=== PATIENT | male | born 1970 | race Caucasian/White ===

== ENCOUNTER 2017-01-20 11:07 | Emergency (ER) | payer OTHER ==
[~2017-01-20] VITALS: Ht 177.8 cm; Wt 81.0 kg
[2017-01-20 11:12] VITALS: Ht 177.8 cm; Wt 81.0 kg
[2017-01-20] MEDS ORDERED: ONDANSETRON (ODT) 4 MG TAB ODT STA (11:49)
[2017-01-20] MEDS ORDERED: morphine 10 MG INJ IM ONE (12:00)
--- NOTE | 2017-01-20 12:27 | ERD ---
ER Documentation Chief Complaint Date/Time DATE: 01/20/17 TIME: 12:25 Chief Complaint Back pain HPI 46-year-old male comes in with his , states he has a history of "disc problems" in the lower back and comes in with severe pain in the low back ever since 5 days ago while he was at work. He was gardening and he was leaning forward, complains of low back pain on the left side that radiates down his left upper leg. There is some numbness associated with this, and not improving with ibuprofen. Pain is worse with any movement, as well as with walking. He denies any fevers or chills. He denies saddle anesthesia or loss of bowel bladder function. ROS All systems reviewed and are negative except as per history of present illness. Medications Home Meds Active Scripts Ibuprofen* (Motrin*) 600 Mg Tab, 600 MG PO Q6, #30 TAB Prov:FELIX MEHTA PA-C 01/20/17 Hydrocodone/Acetaminophen ([place] 10-325 Tablet) 1 Each Tablet, 1 TAB PO Q6H Y for PAIN, #20 TAB Prov:FELIX MEHTA PA-C 01/20/17 Allergies Allergies: Coded Allergies: No Known Allergy (Unverified , 01/20/17) PMhx/Soc History of Surgery: No Anesthesia Reaction: No Hx Neurological Disorder: No Hx Respiratory Disorders: No Hx Cardiac Disorders: No Hx Psychiatric Problems: No Hx Miscellaneous Medical Probl: Yes (chronic back pain) Hx Alcohol Use: No Hx Substance Use: No Hx Tobacco Use: No Smoking Status: Never smoker Physical Exam Vitals Vital Signs Date Time Temp Pulse Resp B/P Pulse Ox O2 Delivery O2 Flow Rate FiO2 01/20/17 13:17 56 17 120/83 100 Room Air 01/20/17 13:02 61 17 99/82 100 Room Air 01/20/17 12:40 48 17 94/48 100 Room Air 01/20/17 11:12 98.7 79 18 135/76 99 Physical Exam General: Well-developed, well-nourished. The patient appears in no acute distress. HEENT: Head is normocephalic, atraumatic. No scleral icterus. Neck: Supple. Nontender. Lungs: Clear to auscultation. Normal air movement. Heart: Regular rate and rhythm. S1 and S2 are normal. No murmurs, gallops, or rubs. Abdomen: Soft, nontender, nondistended. Bowel sounds are normoactive. Back: There is midline and left paraspinous tenderness on the L5. Patient has pain with straight leg raise at 20. Strength lower extremities 5 out of 5 bilaterally, with normal extensor hallucis longus function. Extremities: No clubbing or cyanosis. Normal pulses. Moving extremities x 4. No weakness. Neurologic: Alert and oriented 3. No focal deficits. Skin: Normal turgor. No rash or lesions. Result Diagram: 01/20/17 1250 01/20/17 1250 Results 24 hrs Laboratory Tests Test 01/20/17 12:50 01/20/17 13:55 White Blood Count 9.810^3/ul Red Blood Count 5.0210^6/ul Hemoglobin 15.2g/dl Hematocrit 43.3% Mean Corpuscular Volume 86.3fl Mean Corpuscular Hemoglobin 30.3pg Mean Corpuscular Hemoglobin Concent 35.1g/dl Red Cell Distribution Width 11.8% Platelet Count 04729^3/UL Mean Platelet Volume 9.6fl Neutrophils % 71.1% Lymphocytes % 20.5% Monocytes % 7.3% Eosinophils % 0.3% Basophils % 0.4% Nucleated Red Blood Cells % 0.0/100WBC Neutrophils # 7.010^3/ul Lymphocytes # 2.010^3/ul Monocytes # 0.710^3/ul Eosinophils # 0.010^3/ul Basophils # 0.010^3/ul Nucleated Red Blood Cells # 0.010^3/ul Sodium Level 146mmol/L Potassium Level 4.2mmol/L Chloride Level 104mmol/L Carbon Dioxide Level 24mmol/L Anion Gap 22 Blood Urea Nitrogen 23mg/dl Creatinine 1.32mg/dl Glucose Level 108mg/dl Calcium Level 10.2mg/dl Total Bilirubin 0.5mg/dl Direct Bilirubin 0.00mg/dl Indirect Bilirubin 0.5mg/dl Aspartate Amino Transf (AST/SGOT) 28IU/L Alanine Aminotransferase (ALT/SGPT) 42IU/L Alkaline Phosphatase 84IU/L Total Protein 8.3g/dl Albumin 4.6g/dl Globulin 3.70g/dl Albumin/Globulin Ratio 1.24 Lipase 64U/L Urine Color YELLOW Urine Clarity CLEAR Urine pH 6.0 Urine Specific Lyle 1.018 Urine Ketones NEGATIVEmg/dL Urine Nitrite NEGATIVEmg/dL Urine Bilirubin NEGATIVEmg/dL Urine Urobilinogen NEGATIVEmg/dL Urine Leukocyte Esterase NEGATIVELeu/ul Urine Hemoglobin NEGATIVEmg/dL Urine Glucose NEGATIVEmg/dL Urine Total Protein NEGATIVEmg/dl Current Medications Medications (Trade) Dose Ordered Sig/Cassidy Route PRN Reason Start Time Stop Time Status Last Admin Dose Admin Morphine Sulfate (morphine) 6 mg ONCE ONCE IM 01/20/17 12:00 01/20/17 12:01 DC 01/20/17 12:25 Ondansetron HCl 4 mg 4 mg ONCE STAT ODT 01/20/17 11:49 01/20/17 11:51 DC 01/20/17 12:25 Sodium Chloride (NS) 1,000 ml @ 1,000 mls/hr Q1H STAT IV 01/20/17 12:46 01/20/17 13:45 DC 01/20/17 12:57 Procedures/MDM ED course: He was given morphine 6 mg IM with Zofran 4 mg ODT. Subsequently the patient felt dizzy, became diaphoretic, states that he does not know if he received morphine previously. He was placed on a cardiac cath lab manager, he had an IV line established was started on a fluid bolus of normal saline and nasal cannula 2 L. 12-lead EKG(interpreted by supervising physician): Dr. Walker Rate/Rhythm: Normal Sinus Rhythm, rate of 62 QRS, ST, T-waves: No changes consistent w/ acute ischemia, no intervals, no dysrhythmias, no ectopy Impression: No evidence of ischemia or arrhythmia Medical decision making: This 46-year-old male comes in with low back pain, comes in with low back pain. Patient's history is consistent with sciatica. CT shows sciatica at L5-S1. He had a vasovagal response in the much better at this time. All labs are normal. He does not show any signs of cauda equina compression syndrome. Patient's pain is responded well, he will be given [place] as well as ibuprofen. He was asked to follow-up with supervisory it specialist upon discharge. Departure Diagnosis: Primary Impression: Back pain Condition: FELIX Oconnor PA-C Jan 20, 2017 12:27
[2017-01-20] MEDS ORDERED: SOD CHLORIDE 0.9% 1,000 ML IV STA (12:46)
[2017-01-20 13:06] LABS: ADD SCAN DIFF NO
[2017-01-20 13:11] LABS: BASOPHILS % 0.4 % (0.0-2.0); EOSINOPHILS % 0.3 % (0.0-7.0); HEMATOCRIT 43.3 % (42.0-52.0); HEMOGLOBIN 15.2 g/dl (14.0-18.0); LYMPHOCYTES % 20.5 % (15.0-51.0); MEAN CORPUSCULAR HEMOGLOBIN 30.3 pg (29.0-33.0); MEAN CORPUSCULAR HGB CONC 35.1 g/dl (32.0-37.0); MEAN CORPUSCULAR VOLUME 86.3 fl (82.0-101.0); MEAN PLATELET VOLUME 9.6 fl (7.4-10.4); MONOCYTE # 0.7 10^3/ul (0.3-0.9); MONOCYTES % 7.3 % (0.0-11.0); NEUTROPHILS % 71.1 % (39.0-77.0); PLATELET COUNT 261 10^3/UL (140-415); RED BLOOD COUNT 5.02 10^6/ul (4.70-6.10); RED CELL DISTRIBUTION WIDTH 11.8 % (11.5-14.5); WHITE BLOOD COUNT 9.8 10^3/ul (4.8-10.8)
[2017-01-20 13:25] LABS: ALBUMIN 4.6 g/dl (3.3-4.9); ALBUMIN/GLOBULIN RATIO 1.24; BILIRUBIN,INDIRECT 0.5 mg/dl (0-1.1); BILIRUBIN,TOTAL 0.5 mg/dl (0.2-1.3); CALCIUM 10.2 mg/dl (8.4-10.2); CREATININE 1.32 mg/dl (0.61-1.24); POTASSIUM 4.2 mmol/L (3.5-5.1); TOTAL PROTEIN 8.3 g/dl (6.1-8.1)
--- NOTE | 2017-01-20 14:05 | RADRPT ---
PROCEDURE: CT Lumbar Spine. CLINICAL INDICATION: Low back pain TECHNIQUE: Axial imaging was obtained through the lumbar spine using a multi-slice CT scanner. Sta ndard CT scan of the lumbar spine without contrast protocols were performed. CTDI: 16.84 and DLP: 531.75. One or more of the following dose reduction techniques were used: - Automated exposure control. - Adjustment of the mA and/or kV according to patient size. Use of iterative reconstruction technique. COMPARISON: None. FINDINGS: There is no evidence of acute fractures or subluxations. The bony mineralization is normal. No foca l bony blastic or lytic lesions. The posterior elements are intact. There is degenerative enthesop athy involving the L3 and L4 vertebral bodies. There are no paraspinous masses. T11-12 disk level: Disk space maintains normal heights without disk herniation central spinal canal stenosis or neural foraminal narrowing. Facet joints are unremarkable. T12-L1 disk level: Disk space maintains normal heights without disk herniation central spinal canal stenosis or neural foraminal narrowing. Facet joints are unremarkable. L1-2 disk level: Disk space maintains normal heights without disk herniation central spinal canal s tenosis or neural foraminal narrowing. Facet joints are unremarkable. L2-3 disk level: Disk space maintains normal heights without disk herniation central spinal canal s tenosis or neural foraminal narrowing. Facet joints are unremarkable. L3-4 disk level: Disk space maintains normal heights. Minimal posterior broad-based disk bulge but no disk herniation central spinal canal stenosis or neural foraminal narrowing. Facet joints are u nremarkable. L4-5 disk level: Disk space maintains normal heights. Mild posterior broad-based disk bulge but no disk herniation central spinal canal stenosis or neural foraminal narrowing. Facet joints are unre markable. L5-S1 disk level: There is mild narrowing of the disk space. There is mild posterior broad-based d isk bulge. In addition there is a left paracentral disk protrusion /extrusion extending into the le ft lateral recess and impressing and displacing the left traversing S1 nerve root posteriorly. An M RI of the lumbar spine is suggested to better delineate this finding. No central spinal canal steno sis or neural foraminal narrowing. Facet joints are unremarkable. IMPRESSION: 1. At the L5-S1 disk level there is a left paracentral disk protrusion/extrusion extending in the l eft lateral recess at impressing displacing the left traversing S1 nerve root posteriorly. An MRI o f the lumbar spine is suggested to better delineate this finding. No evidence of central spinal can al or neural foraminal narrowing. 2. At the L3-4 and L4-5 levels there is posterior broad-based disk bulges but no disk herniations. No central spinal canal stenosis or neural foraminal narrowing. 3. No evidence acute fractures or subluxations. RPTAT:AAJJ Physician Jennifer Date Time Electronically viewed and signed by Michelle Yan Physician on 01/20/2017 14:04 BM/
[2017-01-20 14:17] LABS: ADD UMIC NO; UR ASCORBIC ACID NEGATIVE (NEGATIVE); UR BILIRUBIN (Dip) NEGATIVE (NEGATIVE); UR BLOOD (Dip) NEGATIVE (NEGATIVE); UR CLARITY CLEAR (CLEAR); UR COLOR YELLOW (YELLOW); UR GLUCOSE (Dip) NEGATIVE (NEGATIVE); UR KETONES (Dip) NEGATIVE (NEGATIVE); UR LEUKOCYTE ESTERASE (Dip) NEGATIVE Leu/ul (NEGATIVE); UR NITRITE (Dip) NEGATIVE (NEGATIVE); UR SPECIFIC GRAVITY (Dip) 1.018 (1.003-1.030); UR TOTAL PROTEIN (Dip) NEGATIVE (NEGATIVE); UR UROBILINOGEN (Dip) NEGATIVE (NEGATIVE)
[2017-01-20] MEDS ORDERED: HYDR-902 PO (14:54)
[2017-01-20] MEDS ORDERED: IBUP-1542 PO (14:54)
[2017-01-20 15:08] VITALS: BP 118/69; PULSE 67; RESP 20
== END 2017-01-20 15:08 | disposition home or self-care (01) ==
LOC: FTE 11:07
DX: M54.5 Low back pain (principal)
CPT/HCPCS: 36415; 72131; 80053; 81003; 83690; 85025; 93005; 96372; J2270; J7030; Z7502; Z7610

== ENCOUNTER 2017-03-19 20:28 | Emergency (ER) | payer OTHER ==
[~2017-03-19] VITALS: Ht 180.3 cm; Wt 79.0 kg
[~2017-03-19 20:28] MED LIST: HYDR-902 PO; IBUP-1542 PO
[2017-03-19 20:33] VITALS: Ht 180.3 cm; Wt 79.0 kg
[2017-03-19] MEDS ORDERED: ONDANSETRON (ODT) 4 MG TAB ODT STA (21:28)
[2017-03-19] MEDS ORDERED: LIDOCAINE/MYLANTA 40 ML BTL PO ONE (21:30)
[2017-03-19] MEDS ORDERED: FAMOTIDINE 20 MG TAB PO ONE (21:30)
--- NOTE | 2017-03-19 21:59 | ERD ---
ER Documentation Chief Complaint Date/Time DATE: 03/19/17 TIME: 21:58 Chief Complaint n/v hx of ulcer and hiatal hernia HPI This is a 46-year-old male presents to the ER with a history of GERD, ulcer and hiatal hernia that presents to the ER with epigastric pain. Epigastric pain is described as burning in quality. He also has nausea and vomiting. Patient had one episode of nonbilious nonbloody vomiting earlier today. Patient denies any chest pain or shortness of breath. He denies any other abdominal pain. ROS 12 point review of systems was done, all negative except per HPI. Medications Home Meds Active Scripts Ondansetron Hcl* (Zofran*) 4 Mg Tab, 4 MG PO Q4H Y for NAUSEA AND OR VOMITING, # 15 TAB Prov:FRANNIE HER 03/19/17 Sucralfate* (Carafate*) 1 Gm Tab, 1 GM PO QID for 7 Days, TAB Prov:FRANNIE HER 03/19/17 Famotidine* (Pepcid*) 20 Mg Tablet, 20 MG PO BID for 14 Days, TAB Prov:FRANNIE HER 03/19/17 Ibuprofen* (Motrin*) 600 Mg Tab, 600 MG PO Q6, #30 TAB Prov:FELIX MEHTA PA-C 01/20/17 Hydrocodone/Acetaminophen ([place] 10-325 Tablet) 1 Each Tablet, 1 TAB PO Q6H Y for PAIN, #20 TAB Prov:FELIX MEHTA PA-C 01/20/17 Allergies Allergies: Coded Allergies: No Known Allergy (Unverified , 01/20/17) PMhx/Soc History of Surgery: No Anesthesia Reaction: No Hx Neurological Disorder: No Hx Respiratory Disorders: No Hx Cardiac Disorders: No Hx Psychiatric Problems: No Hx Miscellaneous Medical Probl: Yes (chronic back pain) Hx Alcohol Use: No Hx Substance Use: No Hx Tobacco Use: No Smoking Status: Never smoker Physical Exam Vitals Vital Signs Date Time Temp Pulse Resp B/P Pulse Ox O2 Delivery O2 Flow Rate FiO2 03/19/17 20:33 97.9 72 18 140/80 99 Physical Exam GENERAL: The patient is well developed and appropriate for usual state of health , in no apparent distress. HEENT: Atraumatic. NECK: C-spine is soft and supple. There is no cervical lymphadenopathy. CHEST: Clear to auscultation bilaterally. There are no rales, wheezes or rhonchi. HEART: Regular rate and rhythm. No murmurs, clicks, rubs or gallops. ABDOMEN: Soft, nontender and nondistended. Good bowel sounds. No rebound or guarding. No gross peritonitis. No gross organomegaly or masses. No Oh sign or McBurney point tenderness. No pulsatile masses. BACK: No midline or flank tenderness. NEURO: Alert and oriented. Cranial nerves II through XII are intact. Motor strength in all 4 extremities with 5/5 strength. Sensation grossly intact. Normal speech and gait. SKIN: There is no apparent rash or petechia. The skin is warm and dry. Results 24 hrs Current Medications Medications (Trade) Dose Ordered Sig/Cassidy Route PRN Reason Start Time Stop Time Status Last Admin Dose Admin Miscellaneous Medication (Gi Cocktail (2)) 40 ml ONCE ONCE PO 03/19/17 21:30 03/19/17 21:31 DC 03/19/17 21:32 Famotidine (Pepcid) 20 mg ONCE ONCE PO 03/19/17 21:30 03/19/17 21:31 DC 03/19/17 21:32 Ondansetron HCl (Zofran Odt) 4 mg ONCE STAT ODT 03/19/17 21:28 03/19/17 21:30 DC 03/19/17 21:32 Procedures/MDM Upper abdominal pain MDM Differential Diagnosis: GERD, gastritis, peptic ulcer disease, pancreatitis, cholecystitis, choledocholithiasis, biliary colic, cholangitis, [id number], ACS/IA, Pnuemonia. Patient does have a past medical history of GERD, ulcer, hiatal hernia, at this time patient is symptomatic likely from this etiology. Patient denies any right upper quadrant pain suspicion for gallbladder disease is low. Patient was given a GI cocktail , famotidine and Zofran in the ER which completely resolved his symptoms. He denied any chest pain, however I did get an EKG which was normal. [address] elevation no T-wave inversion read by Dr. Peterson. I urged patient to follow-up with the aurist to perform endoscopy and H. pylori testing. I shared my medical decision making with the patient and his , they understand and agree with plan. Departure Diagnosis: Primary Impression: Epigastric pain Condition: Stable FRANNIE HER Mar 19, 2017 21:59
[2017-03-19] MEDS ORDERED: SUCR1TAB56 PO (22:28)
[2017-03-19] MEDS ORDERED: FAMO-96 PO (22:28)
[2017-03-19] MEDS ORDERED: ONDA-43 PO (22:29)
== END 2017-03-19 22:32 | disposition home or self-care (01) ==
LOC: FTE 20:28
DX: R10.13 Epigastric pain (principal); R11.2 Nausea with vomiting, unspecified
CPT/HCPCS: 93005; Z7502; Z7610